=== PATIENT | male | born 1965 | race African-American/Black ===

== ENCOUNTER 2018-10-16 13:55 | Observation (INO) | payer MEDICARE, OTHER ==
[~2018-10-16] VITALS: Ht 185.4 cm; Wt 72.7 kg
[2018-10-16] MEDS: DICLOFENAC SODIUM 1% GEL 100 GM TUBE TP SCH
[~2018-10-16 13:55] MED LIST: [UNRECOGNIZED DRUG - OTHER]
[2018-10-16] MEDS ORDERED: ASPIRIN 325 MG TAB PO STA (14:42)
[2018-10-16] MEDS ORDERED: SOD CHLORIDE 0.9% 1,000 ML IV STA (14:42)
[2018-10-16] MEDS ORDERED: NICARDipine HCL 30 MG CAPSULE PO ONE (15:30)
[2018-10-16] MEDS ORDERED: SOD CHLORIDE 0.9% 100 ML ONE (16:14)
[2018-10-16] MEDS ORDERED: IOHEXOL 100 ML ONE (16:14)
[2018-10-16] MEDS ORDERED: OXYC-380 PO (16:51)
[2018-10-16] MEDS ORDERED: ALBU4TAB4 PO (16:51)
--- NOTE | 2018-10-16 18:17 | ERD ---
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 He says about an hour prior to arrival he suddenly was unable to talk. He said he knew what he wanted to say but he could not get it out he is also having some difficulty swallowing. Said when he tried to talk it was just a bunch of herbal and words. The symptoms lasted for about 15 to 20 minutes and completely resolved. He had no visual change no change in his baseline weakness of his extremities and no paresthesias anywhere. The patient tells me that with Pompeii's disease there can be issues with the basilar artery in the brain. ROS All systems reviewed and are negative except as per history of present illness. 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) Hx Psychiatric Problems: No Hx Miscellaneous Medical Probl: No Hx Alcohol Use: No Hx Substance Use: No Hx Tobacco Use: No Smoking Status: Never smoker FmHx Family History: No coronary disease Physical Exam Vitals Vital Signs Date Temp Pulse Resp B/P (MAP) Pulse Ox O2 O2 Flow FiO2 Time Delivery Rate 10/16/18 97.2 77 16 126/97 97 Room Air 17:48 (107) 10/16/18 97.2 85 16 136/97 97 Room Air 17:12 (110) 10/16/18 97.2 73 18 153/102 99 Room Air 15:55 (119) 10/16/18 97.2 70 18 158/106 99 Room Air 15:13 (123) 10/16/18 97.2 72 16 162/103 99 14:11 (122) Physical Exam Const: Well-developed, well-nourished Head: Atraumatic, normocephalic Eyes: Normal Conjunctiva, PERRLA, EOMI, normal sclera, no nystagmus ENT: Normal External Ears, Nose and Mouth, moist mucus membranes. Neck: Full range of motion. No meningismus, no lymphadenopathy. Resp: Clear to auscultation bilaterally, no wheezing, rhonchi, rales Cardio: Regular rate and rhythm, no murmurs, S1 S2 present Abd: Soft, non tender x 4, non distended. Normal bowel sounds, no guarding or rebound, no pulsitile abdominal masses or bruits Skin: No petechiae or rashes, no ecchymosis , no maculopapular rash Back: No midline or flank tenderness Ext: No cyanosis, or edema, FROM x 4, atrophy to extremities, he has baseline left-sided arm and leg weakness which are not worse., neurovascularly intact x 4 Neur: Awake and alert, right-sided strength is 3-4 out of 5, left-sided strength is 2-3 out of 5 sensation intact x 4, no focal findings, cerebellum intact Psych: Normal Mood and Affect Result Diagram: 10/16/18 1505 10/16/18 1505 Results 24 hrs Laboratory Tests Test 10/16/18 15:05 White Blood Count 4.1 10^3/ul Red Blood Count 4.57 10^6/ul Hemoglobin 13.5 g/dl Hematocrit 42.0 % Mean Corpuscular Volume 91.9 fl Mean Corpuscular Hemoglobin 29.5 pg Mean Corpuscular Hemoglobin Concent 32.1 g/dl Red Cell Distribution Width 15.0 % Platelet Count 196 10^3/UL Mean Platelet Volume 10.6 fl Immature Granulocytes % 0.000 % Neutrophils % 46.6 % Lymphocytes % 44.2 % Monocytes % 5.7 % Eosinophils % 2.5 % Basophils % 1.0 % Nucleated Red Blood Cells % 0.0 /100WBC Immature Granulocytes # 0.000 10^3/ul Neutrophils # 1.9 10^3/ul Lymphocytes # 1.8 10^3/ul Monocytes # 0.2 10^3/ul Eosinophils # 0.1 10^3/ul Basophils # 0.0 10^3/ul Nucleated Red Blood Cells # 0.0 10^3/ul Prothrombin Time 12.2 Sec Prothrombin Time Ratio 1.0 INR International Normalized Ratio 0.89 Activated Partial Thromboplast Time 31.6 Sec Sodium Level 142 mmol/L Potassium Level 4.0 mmol/L Chloride Level 101 mmol/L Carbon Dioxide Level 35 mmol/L Anion Gap 6 Blood Urea Nitrogen 11 mg/dl Creatinine 0.19 mg/dl Est Glomerular Filtrat Rate mL/min > 60 mL/min Glucose Level 85 mg/dl Hemoglobin A1c 5.1 % Calcium Level 9.7 mg/dl Total Bilirubin 0.6 mg/dl Direct Bilirubin 0.00 mg/dl Indirect Bilirubin 0.6 mg/dl Aspartate Amino Transf (AST/SGOT) 35 IU/L Alanine Aminotransferase (ALT/SGPT) 35 IU/L Alkaline Phosphatase 43 IU/L Troponin I < 0.012 ng/ml Total Protein 7.8 g/dl Albumin 4.3 g/dl Globulin 3.50 g/dl Albumin/Globulin Ratio 1.22 Triglycerides Level 83 mg/dl Cholesterol Level 115 mg/dl LDL Cholesterol, Calculated 36 mg/dl HDL Cholesterol 62 mg/dl Cholesterol/HDL Ratio 1.8 RATIO Current Medications Medications Dose Sig/Sheridan Start Time Status Last (Trade) Ordered Route PRN Stop Time Admin Dose Reason Admin Sodium 1,000 ml @ Q1H STAT 10/16/18 DC 10/16/18 Chloride 1,000 mls/hr IV 14:42 10/16/18 15:10 15:41 Aspirin 325 mg ONCE STAT 10/16/18 DC 10/16/18 (Aspirin) PO 14:42 10/16/18 15:10 14:44 Nicardipine 30 mg ONCE ONCE 10/16/18 DC 10/16/18 HCl PO 15:30 10/16/18 15:20 (Cardene) 15:31 IV Flush 10 ml STK-MED 10/16/18 DC (NS 10 ml) ONCE .ROUTE 16:14 10/16/18 16:15 Sodium 100 ml @ ud STK-MED 10/16/18 DC Chloride ONCE .ROUTE 16:14 10/16/18 16:15 Iohexol 100 ml @ ud STK-MED 10/16/18 DC ONCE .ROUTE 16:14 10/16/18 16:15 Procedures/MDM EKG: Rate/Rhythm: Normal sinus rhythm with early repolarization diffusely QRS, ST, QT: NORMAL CO, QRS, QT] Impression: NORMAL EKG [place] [address] Radiology Main Line: [phone] DIAGNOSTIC IMAGING REPORT Patient: EFRAÍN GONZALEZ : 1965 Age: 53 Sex: M MR #: [id number] DOS: 10/16/18 1442 Ordering MD: NATHALIE JOSHUA DO Location: E/R Room/Bed: PROCEDURE: CHEST X-RAY CLINICAL INDICATION: Neurologic deficit TECHNIQUE: AP portable upright one-view COMPARISON: None FINDINGS: Heart size and pulmonary vascularity appears unremarkable. No acute infiltrates, edema, pneumothorax noted. IMPRESSION: No acute process noted radiographically RPTAT: AAOO Physician Sallie Date Time Electronically viewed and signed by Physician Sallie on 10/16/2018 15:25 MB/ CC: NATHALIE JOSHUA DO [id number] Radiology Main Line: [phone] DIAGNOSTIC IMAGING REPORT Patient: EFRAÍN GONZALEZ : 1965 Age: 53 Sex: M MR #: [id number] DOS: 10/16/18 1442 Ordering MD: NATHALIE JOSHUA DO Location: E/R Room/Bed: PROCEDURE: CT Brain without contrast. CLINICAL INDICATION: Stroke TECHNIQUE: A CT of the brain was performed on a multidetector CT scanner utilizing axial imaging from the skull base through the vertex without IV contrast. Multiplanar reformatted images were made. Images were reviewed on a PACS workstation. The CTDIvol is 40 mGy and the DLP is 714 mGycm. DICOM images are available. One or more of the following dose reduction techniques were utilized: 1.) Automated exposure control 2.) Adjustment of the mA +/- kV according to patient's size 3.) Use of iterative reconstruction technique. COMPARISON: None FINDINGS: There is no intracranial hemorrhage, mass effect, or midline shift. No extra- axial fluid collection is seen. There is mild diffuse cerebral volume loss with sulcal and ventricular dilatation. Ventricles are of normal configuration. Noted is subcortical white matter disease on the anterior right and left frontal lobe. There is no associated mass effect. No other intra-axial masses or regions of abnormal attenuation are present.. The stein white matter differentiation appears well-preserved. The visualized paranasal sinuses and osseous structures are grossly unremarkable. IMPRESSION: No intracranial hemorrhage, mass or evidence of acute transcortical infarct. Mild atrophy. Bifrontal white matter disease possibly related to chronic trauma. .Russel Yanez MD, MD Date Time Electronically viewed and signed by .Russel Yanez MD, MD on 10/16/2018 16:56 .A/ CC: NATHALIE JOSHUA DO [id number] [place] [address] Radiology Main Line: [phone] DIAGNOSTIC IMAGING REPORT Patient: EFRAÍN GONZALEZ : 1965 Age: 53 Sex: M [id number] DOS: 10/16/18 1442 Ordering MD: NATHALIE JOSHUA DO Location: E/R Room/Bed: PROCEDURE: CT angiogram brain and neck CLINICAL INDICATION: Stroke. Neurologic deficit TECHNIQUE: CT angiogram of the brain, and neck was performed on a multidetector CT scanner. The study was reviewed on a [employer] PACS/3D workstation with 3D- MIP reformations. 100 cc Omnipaque 350 intravenous contrast were administered. One or more of the following dose reduction techniques were used: Automated exposure control, adjustment in mA and / or kV according to patient size, use of iterative reconstructive technique. CTDIvol = 14 mGy and DLP = 523 mGy-cm. DICOM images are available. COMPARISON: CT brain same date FINDINGS: CT ANGIOGRAM NECK: The imaged great vessels at the aortic arch appear patent. The bilateral common carotid arteries are patent. The bilateral carotid bulbs - bifurcations and internal carotid arteries are patent, without stenosis by NASCET criteria identified. The bilateral vertebral arteries are patent. No dissection is identified. CT ANGIOGRAM BRAIN: The bilateral internal carotid arteries are patent. The bilateral middle, anterior cerebral arteries appear patent. The bilateral vertebral arteries and basilar artery are patent. The bilateral posterior cerebral arteries appear patent. No aneurysm or arteriovenous malformation is identified. IMPRESSION: No cervical or major vessel intracranial arterial occlusion/stenosis identified. RPTAT: EE .Jesus Gómez MD, MD Date Time Electronically viewed and signed by .Jesus Gómez MD, MD on 10/16/2018 17:06 .O/ CC: NATHALIE JOSHUA DO [id number] CT Delia of brain is pending. Patient has had a TIA he has complete resolution of symptoms. Will admit for TIA work-up. Departure Diagnosis: Primary Impression: TIA (transient ischemic attack) Condition: Stable NATHALIE JOSHUA DO Oct 16, 2018 18:17
[2018-10-16] MEDS ORDERED: SOD CHLORIDE 0.9% 1,000 ML IV SCH (18:28)
[2018-10-16] MEDS ORDERED: ACETAMINOPHEN 325 MG TAB PO PRN ×2 (18:30)
[2018-10-16] MEDS ORDERED: HYDROCODONE/APAP (5/325) TAB PO PRN (18:30)
[2018-10-16] MEDS ORDERED: NACL 0.9% 3 ML SYG IV SCH (18:30)
[2018-10-16] MEDS ORDERED: ONDANSETRON 4 MG INJ IV PRN ×2 (18:30)
--- NOTE | 2018-10-16 18:57 | HP ---
Date/Time of Note Date/Time of Note DATE: 10/16/18 TIME: 18:57 Assessment/Plan VTE Prophylaxis Pharmacological prophylaxis: other Lines/Catheters IV [facility]from [facility] Saline Lock Assessment/Plan Hospital Course Patient is a male with a past medical history significant for Pompe disease, adult onset who presents to [facility] for sudden onset expressive aphasia and dysphasia. Patient states that he was in his normal state of health which at baseline is wheelchair-bound and weakness in all extremities however does function with his upper extremities and can move his lower extremity's however they are chronically contracted. Patient currently feels well and feels back to baseline however he states that approximately 1 hour before arriving to the ED, patient was getting dressed by his girlfriend and then suddenly felt his throat close up and could not swallow. Patient said that this was subsequently immediately followed by a sensation of not being able to speak although he never lost consciousness during this time. Patient states that he tried to talk but it did not come out to anything comprehendible. Patie nt states that symptoms lasted approximately 15 to 20 minutes and completely resolved. Patient denies any focal weakness or other issues other than expressive aphasia and inability to swallow during this episode. Patient denies chest pain, shortness of breath, headache, nausea, vomiting, abdominal pain, leg pain other than chronic issues Objective Physical exam General: Patient is laying in bed and answers questions appropriately Mentation: Patient is alert and oriented 4, Head: Normocephalic atraumatic Eyes: EOMI, pupils reactive to light Neck: Supple, nontender, midline Respiratory: Clear to auscultation bilaterally Cardiovascular: regular rate, no obvious murmurs Gastrointestinal: non-tender to palpation, bowel sounds heard. Neurological: Moves all extremities spontaneously, upper extremity +4 muscle strength, lower extremity +3-+4 muscle strength Musculoskeletal: Lower extremity contracted, Assessment and plan Expressive aphasia with dysphasia -Rule out TIA -Neurology consulted -Brain CT and CTA negative for acute issues, brain CT showing bifrontal white matter disease possibly related to chronic trauma -Aspirin -Statin -Echocardiogram -MRI pending -Speech therapy evaluation pending Pompe disease -Diagnosed in his 20s, on treatment IV infusions every 2 weeks -Also on albuterol p.o. for treatment, patient states this is an experimental treatment, will continue for now as patient is taking at home -Patient currently at baseline which is wheelchair-bound, able to move all extremities however weak in all extremities and chronically contracted in the lower extremity. -Patient follows up with a neurologist on a normal basis, was scheduled for outpatient MRI but will get MRI brain here instead. Normocytic anemia -Very mild, near normal levels, will monitor and follow-up outpatient Disposition -Pending MRI and neurology consult, Result Diagram: 10/16/18 1505 10/16/18 1505 Results 24hrs Laboratory Tests Test 10/16/18 15:05 White Blood Count 4.1 L Red Blood Count 4.57 L Hemoglobin 13.5 L Hematocrit 42.0 Mean Corpuscular Volume 91.9 Mean Corpuscular Hemoglobin 29.5 Mean Corpuscular Hemoglobin Concent 32.1 Red Cell Distribution Width 15.0 H Platelet Count 196 Mean Platelet Volume 10.6 H Immature Granulocytes % 0.000 L Neutrophils % 46.6 Lymphocytes % 44.2 Monocytes % 5.7 Eosinophils % 2.5 Basophils % 1.0 Nucleated Red Blood Cells % 0.0 Immature Granulocytes # 0.000 Neutrophils # 1.9 Lymphocytes # 1.8 Monocytes # 0.2 L Eosinophils # 0.1 Basophils # 0.0 Nucleated Red Blood Cells # 0.0 Prothrombin Time 12.2 Prothrombin Time Ratio 1.0 INR International Normalized Ratio 0.89 Activated Partial Thromboplast Time 31.6 Sodium Level 142 Potassium Level 4.0 Chloride Level 101 Carbon Dioxide Level 35 H Anion Gap 6 Blood Urea Nitrogen 11 Creatinine 0.19 L Est Glomerular Filtrat Rate mL/min > 60 Glucose Level 85 Hemoglobin A1c 5.1 Calcium Level 9.7 Total Bilirubin 0.6 Direct Bilirubin 0.00 Indirect Bilirubin 0.6 Aspartate Amino Transf (AST/SGOT) 35 Alanine Aminotransferase (ALT/SGPT) 35 Alkaline Phosphatase 43 Troponin I < 0.012 Total Protein 7.8 Albumin 4.3 Globulin 3.50 H Albumin/Globulin Ratio 1.22 Triglycerides Level 83 Cholesterol Level 115 LDL Cholesterol, Calculated 36 HDL Cholesterol 62 Cholesterol/HDL Ratio 1.8 HPI/ROS Admit Date/Time Admit Date/Time PMH/Family/Social Past Medical History Coded Allergies: No Known Allergy (Unverified , 10/16/18) Social History Smoking Status: Never smoker Exam/Review of Systems Vital Signs Vitals Vital Signs Date Temp Pulse Resp B/P (MAP) Pulse Ox O2 O2 Flow FiO2 Time Delivery Rate 10/16/18 97.2 77 16 126/97 97 Room Air 17:48 (107) VIOLETA WILLIAM Oct 16, 2018 18:57
[2018-10-16] MEDS ORDERED: hydrALAzine 20 MG INJ IV PRN (19:00)
[2018-10-16 20:56] VITALS: PULSE 76
[2018-10-16] MEDS ORDERED: ATORVASTATIN 80 MG TAB PO SCH (21:00)
[2018-10-16 21:55] VITALS: BP 116/57; PULSE 76; RESP 18
[2018-10-16 22:03] VITALS: BP 164/100; PULSE 69; RESP 18
[2018-10-16] MEDS: OXYCODONE/ACETAMINOPHEN (10/325) TAB PO PRN (22:18)
[2018-10-16 23:17] VITALS: Ht 185.4 cm; Wt 72.7 kg
[2018-10-17] VITALS (9 sets, daily range): BP systolic 108–138; BP diastolic 63–89; PULSE 57–78; RESP 18–19
[2018-10-17] MEDS: ALBUTEROL 4 MG TAB PO SCH (09:00)
[2018-10-17] MEDS: ASPIRIN 81 MG TAB PO SCH (09:16)
[2018-10-17] MEDS: DICLOFENAC SODIUM 1% GEL 100 GM TUBE TP SCH ×2 (09:16→21:12)
--- NOTE | 2018-10-17 11:56 | CONSI ---
Assessment/Plan Assessment/Plan Assessment/Plan (Recall) 53 M c/ Adult onset-Pompe's disease, who presents for evaluation of transient dysphagia and dysphasia x 15 min...concerning for TIA. He otherwise notes consistent though episodic immobility that might predispose to DVT... Head CT is unrevealing. CTA neg is negative P: Await MRI brain to evaluate for lasting ischemia Await CTA head to evaluate intracranial vasculature Await Echo report.. to exclude severe cardiomyopathy, valvular disease, or intracardiac shunt.. Add UA, UDS Add B/L LE duplex to exclude dvt Asa daily for now (lipids are at goal) PT/OT/ST as necessary Other management and supportive care per primary Will follow clinically Consultation Date/Type/Reason Admit Date/Time Type of Consult Neurology Reason for Consultation transient dysphasia and dysphagia Requesting Provider: VIOLETA WILLIAM Date/Time of Note DATE: 10/17/18 TIME: 11:44 Hx of Present Illness Patient is a male with a past medical history significant for Pompe disease, adult onset who presents to [facility] for sudden onset expressive aphasia and dysphasia. Patient states that he was in his normal state of health which at baseline is wheelchair-bound and weakness in all extremities however does function with his upper extremities and can move his lower extremity's however they are chronically contracted. Patient currently feels well and feels back to baseline however he states that approximately 1 hour before arriving to the ED, patient was getting dressed by his girlfriend and then suddenly felt his throat close up and could not swallow. Patient said that this was subsequently immediately followed by a sensation of not being able to speak although he never lost consciousness during this time. Patient states that he tried to talk but it did not come out to anything comprehendible. Patient states that symptoms lasted approximately 15 to 20 minutes and completely resolved. Patient denies any focal weakness or other issues other than expressive aphasia and inability to swallow during this episode. Patient denies chest pain, shortness of breath, headache, nausea, vomiting, abdominal pain, leg pain other than chronic issues per HPI Objective Exam Vitals Vital Signs Date Temp Pulse Resp B/P (MAP) Pulse Ox O2 O2 Flow FiO2 Time Delivery Rate 10/17/18 66 08:01 10/17/18 98.6 18 130/89 98 07:49 (103) 10/16/18 Room Air 20:14 Intake and Output 6/9/19 6/9/19 6/10/19 1515:00 23:00 07:00 IntakeIntake Total 700 ml BalanceBalance 700 ml Exam PE: Gen Appearance: No Apparent Distress HEENT: Normocephalic Cardiovascular: Regular rate Lungs: Clear bilaterally Abdomen: Soft Extremities: Dry NE: The patient was alert and oriented, able to spell WORLD backwards, and able to recall all three words after a five minute delay. Language was normal. Fund of knowledge was normal. Pupils were equal and reactive to light. There was no afferent pupillary defect. Visual saunders were normal. Funduscopic examination was limited. Extra-ocular movements were full. Ptosis was absent. There was no nystagmus. Facial sensation was normal. Face was symmetric with normal strength. Hearing was intact. Palate movements were normal. Neck strength was normal. There was normal tongue bulk and speed of movement. Tone was decreased Muscle bulk was decreased proximally. I did not see fasciculations. Arms and legs were diffusely weak, worst proximally. Vibration sensation was normal. Temperature and pinprick sensation was normal. Rapid alternating movements were normal. There was no dysmetria. There was no intention tremor. Gait was deferred due to bedrest. Arm and leg reflexes were symmetric. Mckinney's sign was absent. Plantar responses were flexor. Results Result Diagram: 10/17/186 10/17/18 0446 Results 24hrs Laboratory Tests Test 10/16/18 15:05 10/17/18 04:46 White Blood Count 4.1 L 6.8 # Red Blood Count 4.57 L 4.80 Hemoglobin 13.5 L 14.0 Hematocrit 42.0 43.8 Mean Corpuscular Volume 91.9 91.3 Mean Corpuscular Hemoglobin 29.5 29.2 Mean Corpuscular Hemoglobin Concent 32.1 32.0 Red Cell Distribution Width 15.0 H 15.0 H Platelet Count 196 206 Mean Platelet Volume 10.6 H 10.8 H Immature Granulocytes % 0.000 L 0.100 Neutrophils % 46.6 45.3 Lymphocytes % 44.2 46.2 Monocytes % 5.7 5.5 Eosinophils % 2.5 1.9 Basophils % 1.0 1.0 Nucleated Red Blood Cells % 0.0 0.0 Immature Granulocytes # 0.000 0.010 Neutrophils # 1.9 3.1 Lymphocytes # 1.8 3.1 H Monocytes # 0.2 L 0.4 Eosinophils # 0.1 0.1 Basophils # 0.0 0.1 Nucleated Red Blood Cells # 0.0 0.0 Prothrombin Time 12.2 Prothrombin Time Ratio 1.0 INR International Normalized Ratio 0.89 Activated Partial Thromboplast Time 31.6 Sodium Level 142 143 Potassium Level 4.0 3.9 Chloride Level 101 103 Carbon Dioxide Level 35 H 33 H Anion Gap 6 7 Blood Urea Nitrogen 11 9 Creatinine 0.19 L 0.24 L Est Glomerular Filtrat Rate mL/min > 60 > 60 Glucose Level 85 81 Hemoglobin A1c 5.1 5.0 Calcium Level 9.7 9.8 Total Bilirubin 0.6 0.9 Direct Bilirubin 0.00 0.00 Indirect Bilirubin 0.6 0.9 Aspartate Amino Transf (AST/SGOT) 35 44 Alanine Aminotransferase (ALT/SGPT) 35 29 Alkaline Phosphatase 43 42 Troponin I < 0.012 Total Protein 7.8 7.5 Albumin 4.3 4.4 Globulin 3.50 H 3.10 Albumin/Globulin Ratio 1.22 1.41 Triglycerides Level 83 Cholesterol Level 115 LDL Cholesterol, Calculated 36 HDL Cholesterol 62 Cholesterol/HDL Ratio 1.8 Magnesium Level 2.1 Thyroid Stimulating Hormone (TSH) 2.310 Past Medical History reviewed Home Meds Reported Medications Oxycodone Hcl-Acetaminophen* (Endocet*) 10-325 Mg Tablet, 1 TAB PO QHS PRN for PAIN, TAB 10/16/18 Albuterol Sulfate* (Albuterol Sulfate*) 4 Mg Tablet, 4 MG PO BID, TAB 10/16/18 Discontinued Reported Medications [Chelly] No Conflict Check 02/01/12 Medications Current Medications Ondansetron HCl (Zofran Inj) 4 mg ER BRIDGE PRN IV NAUSEA/VOMITING; Start 10/16/18 at 18:30; Stop 10/17/18 at 18:29 Acetaminophen (Tylenol Tab) 650 mg ER BRIDGE PRN PO .MILD PAIN 1-3 OR TEMP; Start 10/16/18 at 18:30; Stop 10/17/18 at 18:29 IV Flush (NS 3 ml) 3 ml PER PROTOCOL IV ; Start 10/16/18 at 18:30 Ondansetron HCl (Zofran Inj) 4 mg Q6H PRN IV NAUSEA/VOMITING; Start 10/16/18 at 18:30 Aspirin (Aspirin) 81 mg DAILY PO Last administered on 10/17/18at 09:16; Admin Dose 81 MG; Start 10/17/18 at 09:00 Acetaminophen (Tylenol Tab) 650 mg Q6H PRN PO .PAIN 1-3 OR TEMP; Start 10/16/18 at 18:30 Acetaminophen/ Hydrocodone Bitart ([place] (5/325)) 1 tab Q6H PRN PO .PAIN 4-6; Start 10/16/18 at 18:30 Atorvastatin Calcium (Lipitor) 80 mg HS PO Last administered on 10/16/18at 22:17; Admin Dose 80 MG; Start 10/16/18 at 21:00 Albuterol (Proventil Tab) 4 mg QAM PO ; Start 10/17/18 at 09:00 Hydralazine HCl (Apresoline) 10 mg Q4H PRN IV sbp >160; Start 10/16/18 at 19:00 Albuterol (Proventil Tab) 4 mg QPM PO ; Start 10/17/18 at 21:00 Oxycodone/ Acetaminophen (Endocet (10/ 325)) 2 tab Q6H PRN PO MODERATE PAIN LEVEL 4-6 Last administered on 10/16/18at 22:18; Admin Dose 2 TAB; Start 10/16/18 at 22:00 Diclofenac Sodium (Voltaren 1% Gel) 2 gm BID TP Last administered on 10/17/18at 09:16; Admin Dose 2 GM; Start 10/16/18 at 23:00 Allergies: Coded Allergies: No Known Allergy (Unverified , 10/16/18) Social History Smoking Status: Never smoker DOMINGUEZ HUGGINS Oct 17, 2018 11:54
--- NOTE | 2018-10-17 13:47 | PN ---
Date/Time of Note Date/Time of Note DATE: 10/17/18 TIME: 13:44 Assessment/Plan VTE Prophylaxis Risk score (from Ns)>0 risk: 3 SCD applied (from Ns): Yes Pharmacological prophylaxis: other Lines/Catheters IV Catheter Type (from Nrs): Saline Lock Assessment/Plan Assessment/Plan 1. 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 Adult onset Pompe disease - followed by Dr. Tineo at [facility]. Will reach out to discuss patients presenting symptoms - on IV infusions every 2 weeks - Currently at baseline which is wheelchair-bound, able to move all extremities however weak in all extremities and chronically contracted in the lower extremity. 3. Normocytic anemia - mild. no need for transfusions at this time 4. Disposition - Awaiting MRI results Result Diagram: 10/17/18 0446 10/17/18 0446 Results 24hrs Laboratory Tests Test 10/16/18 15:05 10/17/18 04:46 White Blood Count 4.1 L 6.8 # Red Blood Count 4.57 L 4.80 Hemoglobin 13.5 L 14.0 Hematocrit 42.0 43.8 Mean Corpuscular Volume 91.9 91.3 Mean Corpuscular Hemoglobin 29.5 29.2 Mean Corpuscular Hemoglobin Concent 32.1 32.0 Red Cell Distribution Width 15.0 H 15.0 H Platelet Count 196 206 Mean Platelet Volume 10.6 H 10.8 H Immature Granulocytes % 0.000 L 0.100 Neutrophils % 46.6 45.3 Lymphocytes % 44.2 46.2 Monocytes % 5.7 5.5 Eosinophils % 2.5 1.9 Basophils % 1.0 1.0 Nucleated Red Blood Cells % 0.0 0.0 Immature Granulocytes # 0.000 0.010 Neutrophils # 1.9 3.1 Lymphocytes # 1.8 3.1 H Monocytes # 0.2 L 0.4 Eosinophils # 0.1 0.1 Basophils # 0.0 0.1 Nucleated Red Blood Cells # 0.0 0.0 Prothrombin Time 12.2 Prothrombin Time Ratio 1.0 INR International Normalized Ratio 0.89 Activated Partial Thromboplast Time 31.6 Sodium Level 142 143 Potassium Level 4.0 3.9 Chloride Level 101 103 Carbon Dioxide Level 35 H 33 H Anion Gap 6 7 Blood Urea Nitrogen 11 9 Creatinine 0.19 L 0.24 L Est Glomerular Filtrat Rate mL/min > 60 > 60 Glucose Level 85 81 Hemoglobin A1c 5.1 5.0 Calcium Level 9.7 9.8 Total Bilirubin 0.6 0.9 Direct Bilirubin 0.00 0.00 Indirect Bilirubin 0.6 0.9 Aspartate Amino Transf (AST/SGOT) 35 44 Alanine Aminotransferase (ALT/SGPT) 35 29 Alkaline Phosphatase 43 42 Troponin I < 0.012 Total Protein 7.8 7.5 Albumin 4.3 4.4 Globulin 3.50 H 3.10 Albumin/Globulin Ratio 1.22 1.41 Triglycerides Level 83 Cholesterol Level 115 LDL Cholesterol, Calculated 36 HDL Cholesterol 62 Cholesterol/HDL Ratio 1.8 Magnesium Level 2.1 Thyroid Stimulating Hormone (TSH) 2.310 Subjective 24 Hr Interval Summary Free Text/Dictation Patient states his presenting symptoms have resolved but still concerning regarding etiology. MRI pending. Exam/Review of Systems Exam Vitals Vital Signs Date Temp Pulse Resp B/P (MAP) Pulse Ox O2 O2 Flow FiO2 Time Delivery Rate 10/17/18 68 12:00 10/17/18 98.6 18 130/89 98 07:49 (103) 10/16/18 Room Air 20:14 Intake and Output 10/16/18 10/16/18 10/17/18 1515:00 23:00 07:00 IntakeIntake Total 700 ml BalanceBalance 700 ml Exam General: no acute distress. answering questions appropriately Neck: supple Chest: nontender CVS: S1, S2, regular rate and rhythm. no murmurs Lungs: clear to auscultation bilaterally. no wheezing or rhonchi Abd: soft, nontender, nondistended. no rebound or guarding. bowel sounds present diffusely Ext: moving upper extremities. no cyanosis, clubbing, or edema Neuro: speech clear Results Results 24hrs Laboratory Tests Test 10/16/18 15:05 10/17/18 04:46 White Blood Count 4.1 L 6.8 # Red Blood Count 4.57 L 4.80 Hemoglobin 13.5 L 14.0 Hematocrit 42.0 43.8 Mean Corpuscular Volume 91.9 91.3 Mean Corpuscular Hemoglobin 29.5 29.2 Mean Corpuscular Hemoglobin Concent 32.1 32.0 Red Cell Distribution Width 15.0 H 15.0 H Platelet Count 196 206 Mean Platelet Volume 10.6 H 10.8 H Immature Granulocytes % 0.000 L 0.100 Neutrophils % 46.6 45.3 Lymphocytes % 44.2 46.2 Monocytes % 5.7 5.5 Eosinophils % 2.5 1.9 Basophils % 1.0 1.0 Nucleated Red Blood Cells % 0.0 0.0 Immature Granulocytes # 0.000 0.010 Neutrophils # 1.9 3.1 Lymphocytes # 1.8 3.1 H Monocytes # 0.2 L 0.4 Eosinophils # 0.1 0.1 Basophils # 0.0 0.1 Nucleated Red Blood Cells # 0.0 0.0 Prothrombin Time 12.2 Prothrombin Time Ratio 1.0 INR International Normalized Ratio 0.89 Activated Partial Thromboplast Time 31.6 Sodium Level 142 143 Potassium Level 4.0 3.9 Chloride Level 101 103 Carbon Dioxide Level 35 H 33 H Anion Gap 6 7 Blood Urea Nitrogen 11 9 Creatinine 0.19 L 0.24 L Est Glomerular Filtrat Rate mL/min > 60 > 60 Glucose Level 85 81 Hemoglobin A1c 5.1 5.0 Calcium Level 9.7 9.8 Total Bilirubin 0.6 0.9 Direct Bilirubin 0.00 0.00 Indirect Bilirubin 0.6 0.9 Aspartate Amino Transf (AST/SGOT) 35 44 Alanine Aminotransferase (ALT/SGPT) 35 29 Alkaline Phosphatase 43 42 Troponin I < 0.012 Total Protein 7.8 7.5 Albumin 4.3 4.4 Globulin 3.50 H 3.10 Albumin/Globulin Ratio 1.22 1.41 Triglycerides Level 83 Cholesterol Level 115 LDL Cholesterol, Calculated 36 HDL Cholesterol 62 Cholesterol/HDL Ratio 1.8 Magnesium Level 2.1 Thyroid Stimulating Hormone (TSH) 2.310 Medications Medication Current Medications Ondansetron HCl (Zofran Inj) 4 mg ER BRIDGE PRN IV NAUSEA/VOMITING; Start 10/16/18 at 18:30; Stop 10/17/18 at 18:29 Acetaminophen (Tylenol Tab) 650 mg ER BRIDGE PRN PO .MILD PAIN 1-3 OR TEMP; Start 10/16/18 at 18:30; Stop 10/17/18 at 18:29 IV Flush (NS 3 ml) 3 ml PER PROTOCOL IV ; Start 10/16/18 at 18:30 Ondansetron HCl (Zofran Inj) 4 mg Q6H PRN IV NAUSEA/VOMITING; Start 10/16/18 at 18:30 Aspirin (Aspirin) 81 mg DAILY PO Last administered on 10/17/18at 09:16; Admin Dose 81 MG; Start 10/17/18 at 09:00 Acetaminophen (Tylenol Tab) 650 mg Q6H PRN PO .PAIN 1-3 OR TEMP; Start 10/16/18 at 18:30 Acetaminophen/ Hydrocodone Bitart ([place] (5/325)) 1 tab Q6H PRN PO .PAIN 4-6; Start 10/16/18 at 18:30 Albuterol (Proventil Tab) 4 mg QAM PO ; Start 10/17/18 at 09:00 Hydralazine HCl (Apresoline) 10 mg Q4H PRN IV sbp >160; Start 10/16/18 at 19:00 Albuterol (Proventil Tab) 4 mg QPM PO ; Start 10/17/18 at 21:00 Oxycodone/ Acetaminophen (Endocet (10/ 325)) 2 tab Q6H PRN PO MODERATE PAIN LEVEL 4-6 Last administered on 10/16/18at 22:18; Admin Dose 2 TAB; Start 10/16/18 at 22:00 Diclofenac Sodium (Voltaren 1% Gel) 2 gm BID TP Last administered on 10/17/18at 09:16; Admin Dose 2 GM; Start 10/16/18 at 23:00 NHUNG UMANZOR MD Oct 17, 2018 13:47
--- NOTE | 2018-10-17 15:53 | RADRPT ---
Echocardiogram Report Patient Name: EFRAÍN GONZALEZPatient ID: [id number] : 1965 (53y 4m)Study Date: 10/17/2018 9:39:46 AM Gender: MAccession #: [id number] Tech: Akil Cruz [facility] Location: [id number] Ref.Physician: VIOLETA WILLIAM Height(Cm): BSA: Weight(Kg): Quality: Technically Difficult StudyOrder Physician: VIOLETA WILLIAM Account #: Procedures: Echocardiographic Report: Transthoracic echocardiogram with complete 2D, M-Mode, and doppler examination. Indications: Cerebrovascular Accident. Measurements: 2D/M Mode Doppler Measurement Value Normal Range Measurement Value Normal Range LVIDd 2D 3.8 [ 4.2 - 5.8 ] cm AV Peak Trace 1.2 [ 100.0 - 170.0 ] cm/sec LVIDs 2D 2.7 [ 2.5 - 4.0 ] cm AV Peak PG 6.0 [ 2.0 - 9.0 ] mmHg LVPWd 2D 1.2 [ 0.6 - 1.0 ] cm LVOT Peak Trace 1.2 [ 70.0 - 110.0 ] cm/sec IVSd 2D 1.2 [ 0.6 - 1.0 ] cm LVOT Peak PG 6.0 [ 2.0 - 6.0 ] mmHg AoR Diam 2D 2.8 [ 2.6 - 3.4 ] cm MV E Peak Trace 0.7 [ 60.0 - 130.0 ] cm/sec EDV 2D 63.9 [ 62.0 - 150.0 ] ml MV A Peak Trace 0.6 [ 100.0 - 120.0 ] cm/sec ESV 2D 27.3 [ 21.0 - 61.0 ] ml MV E/A 1.1 [ 0.8 - 1.5 ] ratio EF 2D 57.3 [ 52.0 - 72.0 ] percent MV Decel Time 197 [ 104 - 258 ] msec LA Dimen 2D 2.3 [ 3.0 - 4.0 ] cm Lat E` Trace 0.1 [ 10.0 - 15.0 ] cm/sec Lateral E/E` 5.6 [ 1.0 - 2.0 ] ratio MV E/A 1.1 [ 0.8 - 1.5 ] ratio TR Peak Trace 2.5 [ 100.0 - 280.0 ] cm/sec TR Peak PG 26.0 mmHg RVSP 36.0 [ 10.0 - 36.0 ] mmHg Findings: Left Ventricle: Normal left ventricular systolic function. Normal left ventricular cavity size. Mild concentric left ventricular hypertrophy. Ejection fraction is visually estimated at 65 %. Tissue Doppler/Mitral Doppler indices are consistent with pseudonormalization with mildly elevated left atrial pressure (Stage II diastolic dysfunction). Right Ventricle: Normal right ventricular size. Normal right ventricular systolic function. Left Atrium: The left atrium is normal in size. Right Atrium: The right atrium is normal in size. Mitral Valve: Mild mitral leaflet calcification. Mild mitral annular calcification. Trace mitral regurgitation. Aortic Valve: No significant aortic stenosis or insufficiency. Aortic cusps appear mildly calcified. Tricuspid Valve: Normal appearance of the tricuspid valve. The estimated Peak RVSP is 36 mmHg. There is mild tricuspid regurgitation. Pericardium: Normal pericardium with no significant pericardial effusion. Left pleural effusion seen. Aorta: Normal aortic root. IVC: Normal size and normal respiratory collapse consistent with normal right atrial pressure. Conclusions: Normal left ventricular systolic function. Normal left ventricular cavity size. Mild concentric left ventricular hypertrophy. Ejection fraction is visually estimated at 65 %. Tissue Doppler/Mitral Doppler indices are consistent with pseudonormalization with mildly elevated left atrial pressure (Stage II diastolic dysfunction). Mild mitral leaflet calcification. Mild mitral annular calcification. Trace mitral regurgitation. No significant aortic stenosis or insufficiency. Aortic cusps appear mildly calcified. Normal appearance of the tricuspid valve. The estimated Peak RVSP is 36 mmHg. There is mild tricuspid regurgitation. Electronically Signed By: Valente Schmitz 2018-10-17 15:52:29 PDT
[2018-10-17] MEDS ORDERED: ALBUTEROL 2 MG TAB PO SCH ×2 (21:00)
[2018-10-17] MEDS: OXYCODONE/ACETAMINOPHEN (10/325) TAB PO PRN (21:15)
[2018-10-17] MEDS ORDERED: ATORVASTATIN 80 MG TAB PO ONE (21:30)
[2018-10-17] MEDS ORDERED: traMADol 50 MG TAB PO PRN (22:00)
[2018-10-18] VITALS (8 sets, daily range): BP systolic 114–148; BP diastolic 76–81; PULSE 60–80; RESP 18–20
[2018-10-18] MEDS: DICLOFENAC SODIUM 1% GEL 100 GM TUBE TP SCH (09:00)
[2018-10-18] MEDS: ALBUTEROL 4 MG TAB PO SCH (09:00)
[2018-10-18] MEDS: ASPIRIN 81 MG TAB PO SCH (09:05)
--- NOTE | 2018-10-18 12:48 | CONS ---
Assessment/Plan Assessment/Plan Assessment/Plan (Recall) 53 M c/ Adult onset-Pompe's disease, who presents for evaluation of transient dysphagia and dysphasia x 15 min...concerning for TIA. MRI brain confirmed acute ischemia in the L frontal region. CTA head/neck is negative TTE is unrevealing b/l LE Duplex neg UDS neg P: Repeat TTE w/ bubble Consider outpatient QUIANA and 30-day holter monitor, if the above is unrevealing Add ESR, RPR, Hypercoag panel Continue asa daily for now (lipids are at goal) PT/OT/ST as necessary Other management and supportive care per primary Will follow clinically Consultation Date/Type/Reason Admit Date/Time Oct 16, 2018 at 18:28 Type of Consult Neurology Reason for Consultation transient dysphasia and dysphagia Requesting Provider: VIOLETA WILLIAM Date/Time of Note DATE: 10/18/18 TIME: 12:45 24 HR Interval Summary Free Text/Dictation s/p MRI Exam/Review of Systems Exam Vitals Vital Signs Date Temp Pulse Resp B/P (MAP) Pulse Ox O2 O2 Flow FiO2 Time Delivery Rate 10/18/18 98.0 60 18 119/80 98 12:17 (93) 10/16/18 Room Air 20:14 Intake and Output 10/17/18 10/17/18 10/18/18 1515:00 23:00 07:00 IntakeIntake Total 700 ml BalanceBalance 700 ml Exam Comprehensive: stable from prior Results Result Diagram: 10/17/18 0446 10/17/18 0446 Results 24hrs Laboratory Tests Test 10/17/18 21:15 10/18/18 10:25 Urine Color YELLOW Urine Clarity SLIGHTLY CLOUDY A Urine pH 5.0 Urine Specific [place] 1.020 Urine Ketones 2+ H Urine Nitrite NEGATIVE Urine Bilirubin NEGATIVE Urine Urobilinogen NEGATIVE Urine Leukocyte Esterase NEGATIVE Urine Microscopic RBC 80 H Urine Microscopic WBC 2 Urine Bacteria FEW A Urine Mucus FEW A Urine Hemoglobin 3+ H Urine Glucose NEGATIVE Urine Total Protein 1+ H Urine Opiates Screen Negative Urine Barbiturates Negative Urine Amphetamines Screen Negative Urine Benzodiazepines Screen Negative Urine Cocaine Screen Negative Urine Cannabinoids Negative Erythrocyte Sedimentation Rate 9 Medications Medication Current Medications IV Flush (NS 3 ml) 3 ml PER PROTOCOL IV ; Start 10/16/18 at 18:30 Ondansetron HCl (Zofran Inj) 4 mg Q6H PRN IV NAUSEA/VOMITING; Start 10/16/18 at 18:30 Aspirin (Aspirin) 81 mg DAILY PO Last administered on 10/18/18at 09:05; Admin Dose 81 MG; Start 10/17/18 at 09:00 Acetaminophen (Tylenol Tab) 650 mg Q6H PRN PO .PAIN 1-3 OR TEMP; Start 10/16/18 at 18:30 Acetaminophen/ Hydrocodone Bitart ([place] (5/325)) 1 tab Q6H PRN PO .PAIN 4-6; Start 10/16/18 at 18:30 Albuterol (Proventil Tab) 4 mg QAM PO ; Start 10/17/18 at 09:00 Hydralazine HCl (Apresoline) 10 mg Q4H PRN IV sbp >160; Start 10/16/18 at 19:00 Albuterol (Proventil Tab) 4 mg QPM PO ; Start 10/17/18 at 21:00 Oxycodone/ Acetaminophen (Endocet (10/ 325)) 2 tab Q6H PRN PO MODERATE PAIN LEVEL 4-6 Last administered on 10/17/18at 21:15; Admin Dose 2 TAB; Start 10/16/18 at 22:00 Diclofenac Sodium (Voltaren 1% Gel) 2 gm BID TP Last administered on 10/17/18at 21:12; Admin Dose 2 GM; Start 10/16/18 at 23:00 Tramadol HCl (Ultram) 50 mg Q12 PRN PO MODERATE PAIN LEVEL 4-6 Last administered on 10/17/18at 23:04; Admin Dose 50 MG; Start 10/17/18 at 22:00 DOMINGUEZ HUGGINS Oct 18, 2018 12:48
--- NOTE | 2018-10-18 14:02 | PN ---
Date/Time of Note Date/Time of Note DATE: 10/18/18 TIME: 13:58 Assessment/Plan VTE Prophylaxis Risk score (from Nsg)>0 risk: 3 SCD applied (from Nsg): Yes Pharmacological prophylaxis: other Lines/Catheters IV Catheter Type (from Nrsg): Saline Lock Urinary Cath still in place: No Assessment/Plan Assessment/Plan 1. Acute expressive aphasia with dysphagia- resolved - MRI showing acute/recent L posterior frontal stroke. Continue on aspirin. Per neurology, important for ECHO with bubble to be performed prior to discharge. If negative will need outpatient loop recorder vs QUIANA - Continue on aspirin. Lipid panel within normal limits and no need for statin at this time - patient back to baseline - Neurology consultation appreciated. 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 Adult onset Pompe disease - followed by Dr. Tineo at [facility] who is currently out of town - on IV ERT infusions at home every 2 weeks. Last was Wednesday prior to admission - Currently at baseline which is wheelchair-bound, able to move all extremities however weak in all extremities and chronically contracted in the lower extremity. 3. Normocytic anemia - mild. no need for transfusions at this time 4. Disposition - ECHO with bubble study ordered. if negative, will d/c home with outpatient follow up Result Diagram: 10/17/18 0446 10/17/186 Results 24hrs Laboratory Tests Test 10/17/18 21:15 10/18/18 10:25 Urine Color YELLOW Urine Clarity SLIGHTLY CLOUDY A Urine pH 5.0 Urine Specific [place] 1.020 Urine Ketones 2+ H Urine Nitrite NEGATIVE Urine Bilirubin NEGATIVE Urine Urobilinogen NEGATIVE Urine Leukocyte Esterase NEGATIVE Urine Microscopic RBC 80 H Urine Microscopic WBC 2 Urine Bacteria FEW A Urine Mucus FEW A Urine Hemoglobin 3+ H Urine Glucose NEGATIVE Urine Total Protein 1+ H Urine Opiates Screen Negative Urine Barbiturates Negative Urine Amphetamines Screen Negative Urine Benzodiazepines Screen Negative Urine Cocaine Screen Negative Urine Cannabinoids Negative Erythrocyte Sedimentation Rate 9 Subjective 24 Hr Interval Summary Free Text/Dictation Patient anxious to go home today. Discussed need for repeat ECHO with bubble study per Neurology request. No further neurological issues. Exam/Review of Systems Exam Vitals Vital Signs Date Temp Pulse Resp B/P (MAP) Pulse Ox O2 O2 Flow FiO2 Time Delivery Rate 10/18/18 98.0 60 18 119/80 98 12:17 (93) 10/16/18 Room Air 20:14 Intake and Output 10/17/18 10/17/18 10/18/18 1515:00 23:00 07:00 IntakeIntake Total 700 ml BalanceBalance 700 ml Exam General: no acute distress. answering questions appropriately. anxious CVS: S1, S2, regular rate and rhythm. no murmurs Lungs: clear to auscultation bilaterally. no wheezing or rhonchi Abd: soft, nontender, nondistended. no rebound or guarding. bowel sounds present diffusely Ext: moving all extremities but with diminished ROM. no cyanosis, clubbing, or edema Neuro: speech clear. diminished strength UE 4/5 and LE 3/5 Results Results 24hrs Laboratory Tests Test 10/17/18 21:15 10/18/18 10:25 Urine Color YELLOW Urine Clarity SLIGHTLY CLOUDY A Urine pH 5.0 Urine Specific [place] 1.020 Urine Ketones 2+ H Urine Nitrite NEGATIVE Urine Bilirubin NEGATIVE Urine Urobilinogen NEGATIVE Urine Leukocyte Esterase NEGATIVE Urine Microscopic RBC 80 H Urine Microscopic WBC 2 Urine Bacteria FEW A Urine Mucus FEW A Urine Hemoglobin 3+ H Urine Glucose NEGATIVE Urine Total Protein 1+ H Urine Opiates Screen Negative Urine Barbiturates Negative Urine Amphetamines Screen Negative Urine Benzodiazepines Screen Negative Urine Cocaine Screen Negative Urine Cannabinoids Negative Erythrocyte Sedimentation Rate 9 Medications Medication Current Medications IV Flush (NS 3 ml) 3 ml PER PROTOCOL IV ; Start 10/16/18 at 18:30 Ondansetron HCl (Zofran Inj) 4 mg Q6H PRN IV NAUSEA/VOMITING; Start 10/16/18 at 18:30 Aspirin (Aspirin) 81 mg DAILY PO Last administered on 10/18/18at 09:05; Admin Dose 81 MG; Start 10/17/18 at 09:00 Acetaminophen (Tylenol Tab) 650 mg Q6H PRN PO .PAIN 1-3 OR TEMP; Start 10/16/18 at 18:30 Acetaminophen/ Hydrocodone Bitart ([place] (5/325)) 1 tab Q6H PRN PO .PAIN 4-6; Start 10/16/18 at 18:30 Albuterol (Proventil Tab) 4 mg QAM PO ; Start 10/17/18 at 09:00 Hydralazine HCl (Apresoline) 10 mg Q4H PRN IV sbp >160; Start 10/16/18 at 19:00 Albuterol (Proventil Tab) 4 mg QPM PO ; Start 10/17/18 at 21:00 Oxycodone/ Acetaminophen (Endocet (10/ 325)) 2 tab Q6H PRN PO MODERATE PAIN LEVEL 4-6 Last administered on 10/17/18at 21:15; Admin Dose 2 TAB; Start 10/16/18 at 22:00 Diclofenac Sodium (Voltaren 1% Gel) 2 gm BID TP Last administered on 10/17/18at 21:12; Admin Dose 2 GM; Start 10/16/18 at 23:00 Tramadol HCl (Ultram) 50 mg Q12 PRN PO MODERATE PAIN LEVEL 4-6 Last administered on 10/17/18at 23:04; Admin Dose 50 MG; Start 10/17/18 at 22:00 NHUNG UMANZOR MD Oct 18, 2018 14:02
[2018-10-18] MEDS ORDERED: ASPI-831 PO (15:05)
--- NOTE | 2018-10-18 15:14 | PDOCDIS ---
Discharge Instructions DIAGNOSIS Discharge Diagnosis 1. Acute expressive aphasia with dysphagia- resolved 2. 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 Late onset Pompe disease 4. Normocytic anemia CONDITION [id number] Patient Condition: [id number] Stable HOME CARE INSTRUCTIONS: [id number] Diet Instructions: [id number] Low Fat /Cholesterol FOLLOW UP/APPOINTMENTS Follow-up Plan 1. Follow up with your primary care physician in 1-2 weeks. You will need to have your PCP follow up with the results of the hypercoagulable workup ordered during your hospital stay. It is best to have the office request recent hospital records at time of your visit. 2. Follow up with your Plate Filler in 1-2 weeks. Per Neurology, she recommends you have a loop recorder ordered to monitor for any arrhythmias as cause for the stroke. She mentioned QUIANA as well but best to discuss with your specialists 3. Follow up with your Neurologist in 1-2 weeks given new stroke and symptoms that occurred which led to your admission 4. Take aspirin daily and follow low cholesterol, low fat diet. You do not need to be started on a lipid lowering agent since your cholesterol panel was within normal limits 5. If experiencing any concerning symptoms, please go to the nearest emergency department NHUNG UMANZOR MD Oct 18, 2018 15:14
--- NOTE | 2018-10-18 16:53 | DS ---
Date/Time of Note Date/Time of Note DATE: 10/18/18 TIME: 16:49 Discharge Summary Admission/Discharge Info Admit Date/Time Oct 16, 2018 at 18:28 Discharge Date/Time 10/18/2018 Discharge Diagnosis 1. Acute expressive aphasia with dysphagia- resolved 2. 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 Late onset Pompe disease 4. Normocytic anemia Patient Condition: Stable Consults Neurology- Dr. Sinclair Hx of Present Illness Patient is a male with a past medical history significant for Pompe disease, adult onset who presents to [facility] for sudden onset expressive aphasia and dysphasia. Patient states that he was in his normal state of health which at baseline is wheelchair-bound and weakness in all extremities however does function with his upper extremities and can move his lower extremity's however they are chronically contracted. Patient currently feels well and feels back to baseline however he states that approximately 1 hour before arriving to the ED, patient was getting dressed by his girlfriend and then suddenly felt his throat close up and could not swallow. Patient said that this was subsequently immediately followed by a sensation of not being able to speak although he never lost consciousness during this time. Patient states that he tried to talk but it did not come out to anything comprehendible. Patient states that symptoms lasted approximately 15 to 20 minutes and complet lakes[place] resolved. Patient denies any focal weakness or other issues other than expressive aphasia and inability to swallow during this episode. Patient denies chest pain, shortness of breath, headache, nausea, vomiting, abdominal pain, leg pain other than chronic issues Hospital Course Patient was admitted for workup of acute stroke like symptoms and imaging studies were obtained. Neurology consultation was ordered as well. Patient was found with acute/recent left posterior frontal ischemia and ECHO with bubble study was performed which was negative. Per Neurology, patient was started on aspirin but given normal lipid panel, was not start on Lipitor. Patients presenting symptoms resolved and no further neurological issues developed during hospital stay. patients outpatient Neurologist was contacted but currently out of town. Patient was instructed to follow up with Resident Engineer for loop recorder and discuss need for possible QUIANA. He was also to follow up with outpatient Neurologist. Patients presenting symptoms resolved and vitals remained stable. patient was discharged home in good condition. Home Meds Active Scripts Aspirin (Aspirin) 81 Mg Chew, 81 MG PO DAILY for 30 Days, #30 TAB 2 Refills Prov:NHUNG UMAZNOR MD 10/18/18 Reported Medications Oxycodone Hcl-Acetaminophen* (Endocet*) 10-325 Mg Tablet, 1 TAB PO QHS PRN for PAIN, TAB 10/16/18 Albuterol Sulfate* (Albuterol Sulfate*) 4 Mg Tablet, 4 MG PO BID, TAB 10/16/18 Discontinued Reported Medications [Miazyn] No Conflict Check 02/01/12 Follow-up Plan 1. Follow up with your primary care physician in 1-2 weeks. You will need to have your PCP follow up with the results of the hypercoagulable workup ordered during your hospital stay. It is best to have the office request recent h ospital records at time of your visit. 2. Follow up with your Resident Engineer in 1-2 weeks. Per Neurology, she recommends you have a loop recorder ordered to monitor for any arrhythmias as cause for the stroke. She mentioned QUIANA as well but best to discuss with your specialists 3. Follow up with your Neurologist in 1-2 weeks given new stroke and symptoms that occurred which led to your admission 4. Take aspirin daily and follow low cholesterol, low fat diet. You do not need to be started on a lipid lowering agent since your cholesterol panel was within normal limits 5. If experiencing any concerning symptoms, please go to the nearest emergency department Primary Care Provider Not On Staff Doctor Time spent on discharge: > 30 minutes Pending Labs Laboratory Tests Test 10/17/18 21:15 10/18/18 10:25 Urine Color YELLOW (YELLOW) Urine Clarity SLIGHTLY CLOUDY (CLEAR) Urine pH 5.0 (5.0-9.0) Urine Specific Hardy 1.020 (1.003-1.030) Urine Ketones 2+ mg/dL (NEGATIVE) Urine Nitrite NEGATIVE mg/dL (NEGATIVE) Urine Bilirubin NEGATIVE mg/dL (NEGATIVE) Urine Urobilinogen NEGATIVE mg/dL (NEGATIVE) Urine Leukocyte Esterase NEGATIVE Brian/ul Urine Microscopic RBC 80 /HPF (0-5) Urine Microscopic WBC 2 /HPF (0-5) Urine Bacteria FEW /HPF (NONE SEEN) Urine Mucus FEW /HPF (NONE SEEN) Urine Hemoglobin 3+ mg/dL (NEGATIVE) Urine Glucose NEGATIVE mg/dL (NEGATIVE) Urine Total Protein 1+ mg/dl (NEGATIVE) Urine Opiates Screen Negative (NEGATIVE) Urine Barbiturates Negative (NEGATIVE) Urine Amphetamines Screen Negative (NEGATIVE) Urine Benzodiazepines Screen Negative (NEGATIVE) Urine Cocaine Screen Negative (NEGATIVE) Urine Cannabinoids Negative (NEGATIVE) Erythrocyte Sedimentation Rate 9 mm/Hr (0-20) Rapid Plasma Reagin NONREACTIVE (NR) NHUNG UMANZOR MD Oct 18, 2018 16:53
--- NOTE | 2018-10-19 20:08 | RADRPT ---
Echocardiogram Report Patient Name: EFRAÍN GONZALEZPatient ID: [id number] : [id number] (53y 4m)Study Date: 10/18/2018 1:42:05 PM Gender: MAccession #: [id number] Tech: Carmela Cruz [facility] Location: [facility] Ref.Physician: NHUNG UMANZOR Height(Cm): BSA: Weight(Kg): Quality: AdequateOrder Physician: VIOLETA WILLIAM Account #: Procedures: Echocardiographic Report: Transthoracic echocardiogram examination. Indications: Cerebrovascular Accident. Findings: Atrial Septum: Agitated saline was injected intravenously for microbubble contrast study. No right to left shunt was identified with and with out valsalva maneuver. Conclusions: Agitated saline was injected intravenously for microbubble contrast study. No right to left shunt was identified with and with out valsalva maneuver. Electronically Signed By: Valente Schmitz 2018-10-19 20:07:40 PDT
== END 2018-10-18 19:10 | disposition home or self-care (01) ==
LOC: E/R 13:55 → 6WM 18:28 → CANRESERV 19:55
PROVIDERS: ADMIT Internal Medicine; ATTEND Internal Medicine
DX: I63.9 Cerebral infarction, unspecified (principal); R47.01 Aphasia; R13.10 Dysphagia, unspecified; D64.9 Anemia, unspecified; E74.02 Pompe disease; Z99.3 Dependence on wheelchair
CPT/HCPCS: 36415; 70450; 70496; 70498; 70551; 71045; 80053; 80061; 80307; 81001; 81240; 83036; 83735; 83890; 84443; 84484; 85025; 85300; 85302; 85305; 85610; 85613; 85651; 85730; 86147; 86592; 92610; 93005; 93306; 93308; 93970; 99285; G0378; J7030; Q9967